=== PATIENT | male | born 1935 | race Caucasian/White ===

== ENCOUNTER → 2016-09-11 | Outpatient (CLI) | payer OTHER ==
--- NOTE | 2016-09-11 14:39 | KCIC ---
PROCEDURE MRI of the cervical spine without contrast 09/11/2016 HISTORY Neck and upper back pain with popping. TECHNIQUE Unenhanced T1 weighted, T2 weighted and inversion recovery sagittal and gradient echo and T2 weighted axial images of the cervical spine were obtained. FINDINGS Comparison is made to radiographs of the cervical spine dated 06/30/2016. Very mild lateral curvature of the cervical spine is seen convex to the right. There is straightening of the normal cervical lordosis. Degenerative signal changes are seen involving all of the discs of the cervical spine. Degenerative signal changes are seen within the marrow surrounding these discs. Loss of height of the C4-5, C5-6 and C6-7 discs is noted. No area of abnormal signal intensity is seen involving the cervical spinal cord. At the C2-3, C3-4 and C4-5 disc spaces there are minimal to mild generalized disc bulges. Degenerative changes are seen involving the uncovertebral and facet joints bilaterally. These findings do not result in significant central spinal canal or neural foraminal stenosis. At the C5-6 disc space there is a mild to moderate generalized disc bulge. Degenerative changes are seen involving the uncovertebral and facet joints bilaterally. These findings when combined efface the anterior CSF resulting in mild central spinal canal stenosis without evidence cord impingement. Mild bilateral neural foraminal stenosis is seen. At the C6-7 disc space there is a mild to moderate generalized disc bulge. Superimposed on this disc bulge is a focal central disc protrusion. This measures 2.5 millimeters in AP diameter. Degenerative changes are seen involving the uncovertebral and facet joints bilaterally. These findings efface the anterior CSF without resulting in significant central spinal canal stenosis. Mild bilateral neural foraminal stenosis is seen. At the C7-T1 disc space there is a mild generalized disc bulge. Degenerative changes are seen involving the facet joints bilaterally. These findings when combined do not result in significant central spinal canal or neural foraminal stenosis. IMPRESSION Degenerative changes are seen throughout the cervical spine. These findings result in mild central spinal canal stenosis at C5-6 without evidence of cord impingement. Mild bilateral neural foraminal stenosis is seen at C5-6 and C6-7. Electronically signed by: Daniel Singh MD (Sep 11, 2016 14:38:15)
--- NOTE | 2016-09-11 15:07 | KCIC ---
PROCEDURE MRI of the thoracic spine without contrast 09/11/2016 HISTORY Upper back pain with popping. TECHNIQUE Unenhanced T1 weighted, T2 weighted and inversion recovery sagittal and T1 weighted and T2 weighted axial images of the thoracic spine were obtained. T2 weighted sagittal images of the cervical, thoracic and lumbar spine were obtained for localization purposes. FINDINGS Comparison is made to radiographs of the thoracic spine dated 06/30/2016. Very mild S-shaped curvature of the thoracolumbar spine is seen. Degenerative signal changes are seen involving all of the discs of the thoracic spine. Loss of height of the discs of the mid and lower thoracic spine is seen. The marrow signal of the visualized bony structures is within normal limits. The thoracic spinal cord is normal in morphology, position, and signal characteristics. Rounded areas of increased signal intensity are seen on the T2 weighted images scattered throughout the visualized portions of the kidneys. These measure 5 millimeters 5.6 centimeters in size. They likely represent cysts. On the axial images degenerative changes are seen involving the thoracic disc spaces consisting of minimal generalized disc bulges and degenerative changes involving the facet joints. These findings do not result in significant central spinal canal or neural foraminal stenosis at any level. IMPRESSION Degenerative changes are seen throughout the thoracic spine as outlined above. These findings do not result in significant central spinal canal or neural foraminal stenosis at any level. Electronically signed by: Daniel Singh MD (Sep 11, 2016 15:06:03)
== END | disposition home or self-care (01) ==
LOC: KCIC MRI 10:49
PROVIDERS: ATTEND Physician Assistant Medical
DX: M47.894 Other spondylosis, thoracic region (principal); M43.8X5 Other specified deforming dorsopathies, thoracolumbar region; V89.2XXD Person injured in unspecified motor-vehicle accident, traffic, subsequent encounter
CPT/HCPCS: 72141; 72146

== ENCOUNTER → 2016-09-27 | Outpatient (CLI) | payer OTHER ==
[~2016-09-27] MED LIST: CARV3.122 PO; FINA5TAB4 PO
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
== END | disposition home or self-care (01) ==
LOC: PNCL 09:27
PROVIDERS: ATTEND Anesthesiology
DX: M54.2 Cervicalgia (principal); M79.602 Pain in left arm
CPT/HCPCS: G0463

== ENCOUNTER → 2016-10-16 | Outpatient (CLI) | payer OTHER ==
--- NOTE | 2016-10-16 23:53 | PAIN ---
DATE OF SERVICE: 10/16/2016 DIAGNOSES: Cervical radiculopathy with cervical degenerative disk disease. HISTORY OF PRESENT ILLNESS: The patient is an 81-year-old male who returns for followup status post initial evaluation and preauthorization for cervical epidural steroid injection. The patient says, prior to this, he was doing much better after Medrol Dosepak, would like to hold for a bit on any injections. The patient reports about 75% improvement since the Medrol Dosepak, which was about 3 weeks ago. The patient reports still some popping in his neck with some tightness in the left shoulder and radiation into the upper extremity on the left side, but doing much better. The patient reports it as a 1 on a scale of 10 depending on activity ____ with some increased activity, it has been still very tolerable. The patient is very pleased with his progress and would like to hold on any interventional techniques at this time. The patient reports no new motor or sensory deficits, no new changes or other concerns. PHYSICAL EXAMINATION: VITAL SIGNS: Today, the patient's blood pressure is 136/75, pulse 67, respirations 18, temperature 97.9 degrees Fahrenheit. Height is 6 feet 1 inch, weight is 184 pounds. GENERAL: The patient is awake, alert, oriented, appropriate, very pleasant demeanor. HEENT: Head shows normocephalic, atraumatic. Extraocular movements are intact and symmetrical. Oral cavity, mucous membranes are moist and pink. Dentition is intact. NECK: Shows anterior throat supple without palpable lymphadenopathy noted. Swallow reflex is symmetrical. CHEST: Shows normal on inspection. Breath sounds are clear to auscultation bilaterally. HEART: Shows S1 and S2 clear. ABDOMEN: Soft, nontender, nondistended. No palpable organomegaly is noted. BACK: Shows spine grossly midline. Lumbar paraspinous muscle shows some moderate tenderness with palpation ____ cervical distribution, which is symmetrical with palpation, it is mildly tender bilaterally, but worse on the left side into the superior medial trapezius and lateral trapezius on the left only, but without asymmetry, no trigger points, no radiation. The patient's neck shows good rotational motion both laterally as well as extension and flexion without significant difficulty or pain reported at this time. EXTREMITIES: Upper extremities show deep tendon reflexes at 1+ in the biceps and triceps tendons. Motor exam is approximately 4 on a scale of 5 with left poster strength and 5/5 on the right. PLAN: Options were discussed with the patient. The patient's old chart was reviewed as his current medication regimen updated. Current review of systems updated today as well. We will proceed with rescheduling patient for about 2 weeks to see if he is having any increased pain. The patient will call prior to that if pain worsens with the radicular quality is worse in the left arm, but he would like to increase his activity. We will see how he does. If he is doing very well after the Medrol Dosepak prior to any interventional techniques, we will order this and have him return in about 2 weeks and discuss possible cervical epidural steroid injection at that time. JEREMIAH SOLITARIO MD DR: KARO/tariq JOB#: [id number] / [id number]
== END | disposition home or self-care (01) ==
LOC: PNCL 09:09
PROVIDERS: ATTEND Anesthesiology
DX: M50.10 Cervical disc disorder with radiculopathy, unspecified cervical region (principal)
CPT/HCPCS: G0463

== ENCOUNTER → 2016-10-30 | Outpatient (CLI) | payer OTHER ==
[~2016-10-30] MED LIST changes: +IOHEXOL 180 MG/ML 10 ML VIAL. ONE; +methylPREDNISolone ACETATE 40 MG/ML VIAL. ONE; +methylPREDNISolone ACETATE 80 MG/ML VIAL. ONE
--- NOTE | 2016-10-30 16:45 | PAIN ---
DATE OF SERVICE: 10/30/2016 PROGRESS NOTE FOR PAIN CLINIC DIAGNOSES: Cervical radiculopathy with cervical degenerative disk disease. HISTORY OF PRESENT ILLNESS: This is an 81-year-old male, who returns for followup status post initial evaluation and Medrol Dosepak, did very well with this, came in the next 2 weeks after the medication, see how is the pain would ____. The patient reports it is returning now in the base of the shoulder and left upper extremity and also the left neck. The patient reports the sore sensation, started to radiating to the arm again with decreased ability to move the arm. The patient reports that after of Medrol Dosepak it was becoming much more active, but now the pain is beginning to return ____ limiting his activity. The patient reports no new motor or sensory deficits, no new changes, but still significant pain rated at 3 on a scale of 10 in the neck and left shoulder and left upper extremity. PHYSICAL EXAMINATION: VITAL SIGNS: The patient's blood pressure 136/79, pulse 64, respirations are 20, temperature is 97.8 degrees Fahrenheit, height 6 feet 1 inch. Weight 186 pounds. GENERAL: The patient is awake, alert, oriented, appropriate, very pleasant demeanor. HEENT: Head shows normocephalic, atraumatic. Extraocular movements are intact and symmetrical. Oral cavity, mucous membranes are moist and pink. Dentition is intact. NECK: Shows anterior throat supple without palpable lymphadenopathy noted. Swallow reflex is symmetrical. CHEST: Shows normal on inspection. Breath sounds are clear to auscultation bilaterally. HEART: Shows S1 and S2 clear. No murmurs auscultated. ABDOMEN: Soft, nontender, nondistended. BACK: Shows spine grossly midline. Cervical paraspinous muscle shows some moderate tenderness with palpation, more so on the left superior and medial trapezius than on the right, but also with tenderness in the posterior cervical paraspinous muscles bilaterally, again worse on the left than the right, without asymmetry, without trigger points or radiation. EXTREMITIES: Upper extremities showed deep tendon reflexes 1+ in the biceps and triceps tendons. Motor exam is approximately 4 on a scale 5 with left certified personal chef strength and 5/5 on the right. Peripheral pulses are 2+ bilaterally. Options were discussed with the patient. At this time, the patient's old chart was reviewed and his current medication regimen updated. Current review of systems updated today as well. We will proceed with a cervical epidural steroid injection today is the first in the series. Risks were again discussed including but not limited to bleeding, infection, possibility of epidural hematoma, subsequent neurologic compromise, dural puncture, headaches, spinal cord and/or nerve damage, side effects of steroid medication and poor results regarding pain control. The patient understands and wishes to proceed. The patient will return to the clinic in approximately 2 weeks for followup. He is counseled on return appointment, activity level, and side effects to be aware of. DIAGNOSES: Cervical radiculopathy with cervical degenerative disk disease. PROCEDURE: Cervical epidural steroid injection in translaminar approach at C6-C7 level using C-arm fluoroscopic guidance under sterile prep and drape, using local anesthetic. MEDICATIONS INJECTED: 120 mg Depo-Medrol plus 5 mL of preservative-free normal saline and 2 mL Isovue for contrast. CONDITION AT DISCHARGE: Stable. The patient tolerated procedure well, had no complications. JEREMIAH SOLITARIO MD DR: KARO/tariq JOB#: [id number] / [id number]
== END | disposition home or self-care (01) ==
LOC: PNCL 13:47
PROVIDERS: ATTEND Anesthesiology
DX: M50.123 Cervical disc disorder at C6-C7 level with radiculopathy (principal)
CPT/HCPCS: 62321; J1030; J1040

== ENCOUNTER → 2017-03-05 | Outpatient (CLI) | payer OTHER ==
[~2017-03-05] MED LIST changes: -IOHEXOL 180 MG/ML 10 ML VIAL. ONE; -methylPREDNISolone ACETATE 40 MG/ML VIAL. ONE; -methylPREDNISolone ACETATE 80 MG/ML VIAL. ONE
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
== END | disposition home or self-care (01) ==
LOC: KCIC 09:07
PROVIDERS: ATTEND Family Medicine
DX: M47.896 Other spondylosis, lumbar region (principal); Y92.410 Unspecified street and highway as the place of occurrence of the external cause
CPT/HCPCS: 72110